=== PATIENT | male | born 1965 | race Caucasian/White ===

== ENCOUNTER 2018-05-03 18:23 | Emergency (ER) | payer OTHER ==
[~2018-05-03] VITALS: Ht 177.8 cm; Wt 65.3 kg
[2018-05-03 18:43] VITALS: Ht 177.8 cm; Wt 65.3 kg
[2018-05-03 20:18] LABS: BASOPHIL % 0.5 % (0-2); PLATELET COUNT 293 x10^3mcL (130-400); RED CELL DISTRIBUTION WIDTH 14.4 % (11.5-14.5)
[2018-05-03 20:21] LABS: CALCIUM 8.6 mg/dL (8.5-10.1); CARBON DIOXIDE 26.8 mmol/L (21-32); CHLORIDE SERUM 105 mmol/L (98-107); CREATININE SERUM 0.9 mg/dL (0.7-1.3); GFR1 > 60 mL/min; GLUCOSE SERUM 95 mg/dL (74-106); POTASSIUM SERUM 3.4 mmol/L (3.5-5.1); SODIUM SERUM 139 mmol/L (136-145)
[2018-05-03 20:33] LABS: ALBUMIN 3.9 g/dL (3.4-5.0); ALKALINE PHOSPHATASE 57 U/L (46-116); ALT/SGPT 27 U/L (16-63); AST/SGOT 21 U/L (15-37); BILIRUBIN TOTAL 0.45 mg/dL (0.20-1.00); LIPASE 167 IU/L (73-393)
[2018-05-03 22:39] VITALS: BP 188/96
== END 2018-05-03 22:57 | disposition home or self-care (01) ==
LOC: ED 18:23
PROVIDERS: Emergency Medicine
DX: F11.23 Opioid dependence with withdrawal (principal); R19.7 Diarrhea, unspecified; F17.210 Nicotine dependence, cigarettes, uncomplicated
CPT/HCPCS: J1885; J7030

== ENCOUNTER 2018-12-22 10:35 | Emergency (ER) | payer OTHER ==
[~2018-12-22] VITALS: Ht 172.7 cm; Wt 68.5 kg
[2018-12-22 10:47] VITALS: BP 183/90; Ht 172.7 cm; Wt 68.5 kg
== END 2018-12-22 11:41 | disposition home or self-care (01) ==
LOC: ED 10:35
DX: M54.5 Low back pain (principal); G89.29 Other chronic pain; Z76.0 Encounter for issue of repeat prescription; Z98.890 Other specified postprocedural states

== ENCOUNTER 2019-04-12 07:40 | Emergency (ER) | payer OTHER ==
[~2019-04-12] VITALS: Ht 172.7 cm; Wt 71.7 kg
[2019-04-12 07:43] VITALS: Ht 172.7 cm; Wt 71.7 kg
[2019-04-12 09:10] LABS: BASOPHIL % 0.6 % (0-2); PLATELET COUNT 281 x10^3mcL (130-400); RED CELL DISTRIBUTION WIDTH 14.2 % (11.5-14.5)
[2019-04-12 10:17] LABS: microscopic required? YES; urine erythrocyte 1+ (NEGATIVE)
[2019-04-12 10:32] LABS: CALCIUM 9.3 mg/dL (8.5-10.1); CARBON DIOXIDE 30.2 mmol/L (21-32); CHLORIDE SERUM 104 mmol/L (98-107); CREATININE SERUM 0.9 mg/dL (0.7-1.3); GFR1 > 60 mL/min; GLUCOSE SERUM 92 mg/dL (74-106); POTASSIUM SERUM 4.3 mmol/L (3.5-5.1); SODIUM SERUM 140 mmol/L (136-145)
[2019-04-12 10:36] LABS: ALBUMIN 4.4 g/dL (3.4-5.0); ALKALINE PHOSPHATASE 78 U/L (46-116); ALT/SGPT 25 U/L (16-63); AST/SGOT 20 U/L (15-37); BILIRUBIN TOTAL 0.4 mg/dL (0.20-1.00); TOTAL PROTEIN, SERUM 8.1 g/dL (6.4-8.2)
[2019-04-12 10:37] LABS: AMPHETAMINE QUAL UR NONE DETECTED (See below)
[2019-04-12 10:56] VITALS: BP 159/76
== END 2019-04-12 11:11 | disposition home or self-care (01) ==
LOC: ED 07:40
PROVIDERS: Specialist
DX: N30.90 Cystitis, unspecified without hematuria (principal)
CPT/HCPCS: 36415; 87491; 87591

== ENCOUNTER 2020-01-21 13:23 | Emergency (ER) | payer OTHER ==
[~2020-01-21] VITALS: Ht 170.2 cm; Wt 68.0 kg
[2020-01-21 13:36] VITALS: Ht 170.2 cm; Wt 68.0 kg
[2020-01-21 15:02] VITALS: BP 131/78
== END 2020-01-21 15:02 | disposition home or self-care (01) ==
LOC: ED 13:23
DX: I10 Essential (primary) hypertension (principal); F17.210 Nicotine dependence, cigarettes, uncomplicated; M54.5 Low back pain; Z98.890 Other specified postprocedural states
CPT/HCPCS: 99406; J1100; J1885